=== PATIENT | female | born 1990 | race Hispanic/Latino ===

== ENCOUNTER → 2019-12-02 | Outpatient (REF) | payer OTHER | LOC: M SFHCLERA 12:34 | PROVIDERS: ATTEND Physician Assistant | DX: J02.9 Acute pharyngitis, unspecified (principal) ==

== ENCOUNTER 2020-09-02 14:04 | Emergency (ER) | payer OTHER ==
[~2020-09-02] VITALS: Ht 154.9 cm; Wt 84.0 kg
[2020-09-02] MEDS ORDERED: NS 1,000 ML IV ONE (14:45)
[2020-09-02 15:07] LABS: BASO % 0.2 % (0.0-1.0); EOS # 0.1 10^3/uL (0.0-0.5); EOS % 0.5 % (0.0-3.0); HEMATOCRIT 38.1 % (36.0-47.0); HEMOGLOBIN 12.8 g/dl (12.0-15.5); LYMPH % 18.9 % (24.0-44.0); MEAN CORPUSCULAR HEMOGLOBIN 28.8 pg (27.0-33.0); MEAN CORPUSCULAR HGB CONC 33.6 g/dl (32.0-36.5); MEAN CORPUSCULAR VOLUME 85.6 fl (80.0-96.0); MONO # 0.6 10^3/uL (0.0-0.8); MONO % 5.6 % (0.0-5.0); NEUTROPHILS % 74.4 % (36.0-66.0); PLATELET COUNT, AUTOMATED 247 10^3/uL (150-450); RED BLOOD COUNT 4.45 10^6/uL (4.00-5.40); WHITE BLOOD COUNT 10.8 10^3/uL (4.0-10.0)
[2020-09-02 15:32] LABS: BLOOD UREA NITROGEN 11 MG/DL (7-18); CALCIUM LEVEL 9.3 MG/DL (8.5-10.1); CARBON DIOXIDE LEVEL 28 MEQ/L (21-32); CHLORIDE LEVEL 105 MEQ/L (98-107); CREATININE FOR GFR 0.88 MG/DL (0.55-1.30); GLOMERULAR FILTRATION RATE > 60.0 (>60); GLUCOSE, FASTING 90 MG/DL (70-100); POTASSIUM SERUM 3.9 MEQ/L (3.5-5.1); SODIUM LEVEL 137 MEQ/L (136-145)
[2020-09-02] MEDS ORDERED: MULTTAB20 PO (16:56)
[2020-09-02 17:17] VITALS: BP 131/67
--- NOTE | 2020-09-03 07:15 | ECGEPIP ---
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
== END 2020-09-02 17:23 | disposition home or self-care (01) ==
LOC: M ED 14:04
DX: O26.892 Other specified pregnancy related conditions, second trimester (principal); Z3A.14 14 weeks gestation of pregnancy; Z79.899 Other long term (current) drug therapy

== ENCOUNTER → 2020-09-06 | Outpatient (CLI) | payer SELFPAY ==
[~2020-09-06] MED LIST: MULTTAB20 PO
== END ==
LOC: M LABSMTC 14:12
PROVIDERS: ATTEND Pediatrics
DX: Z20.828 Contact with and (suspected) exposure to other viral communicable diseases (principal)

== ENCOUNTER 2021-02-20 08:14 | Inpatient (IN) | payer OTHER ==
[~2021-02-20] VITALS: Ht 154.9 cm; Wt 87.7 kg
[2021-02-20] VITALS (59 sets, daily range): BP systolic 76–134; BP diastolic 40–81
[2021-02-20] MEDS ORDERED: UNIS25TA3 PO (08:40)
[2021-02-20] MEDS ORDERED: TUMS500C PO (08:40)
[2021-02-20] MEDS ORDERED: METHYLERGONOVINE MALEATE 0.2 MG/ML VIAL (J2210) IM PRN (09:25)
[2021-02-20] MEDS ORDERED: TRANEXAMIC ACID INJection 1,000 MG in NS 100 ML IV PRN (09:25)
[2021-02-20] MEDS ORDERED: CARBOPROST TROMETHAMINE 250 MCG/ML AMP IM PRN (09:25)
[2021-02-20] MEDS ORDERED: OXYTOCIN DRIP 30 UNITS in IV 1 EA IV PRN ×4 (09:25)
[2021-02-20] MEDS ORDERED: OXYTOCIN INJ 10 UNITS/ML VIAL (J2590) IM PRN (09:25)
[2021-02-20] MEDS ORDERED: OXYTOCIN INJ 10 UNITS/ML VIAL (J2590) IV PRN (09:25)
[2021-02-20] MEDS ORDERED: LACTATED RINGER'S 1000 ML IV STA (09:29)
[2021-02-20] MEDS ORDERED: NS 1,000 ML IV SCH (09:30)
[2021-02-20] MEDS: LR 1,000 ML IV SCH ×3 (09:30→19:04)
--- NOTE | 2021-02-20 09:36 | HPEPDOC ---
Obstetrical History & Physical General Date of Admission Feb 20, 2021 at 09:19 History of Present Illness Mrs. Sandie Brown is a 30yo at 39w2d ega, by 1st trimester ultrasound, with PNC c/b h/o a PLTCS, A1GDM, Rh negative, Obesity, and Varicella Non-Immune status who presents to rule-out labor. Mrs. Brown reports the onset of regular uterine contractions at 05:00. She denies LOF or VB. + FM. Chief Complaint: Contractions, term Information Provided By: Patient Age: 30 : 3 Term: 1 Pre-term: 0 Abortions: 1 Livin Care Care: Good Care (7) Number of Visits: 7 Dating Final EDC: Feb 25, 2021 Final EDC for Daily Update: Feb 25, 2021 Final EDC by: 1st trimester (US) LMP: Apr 29, 2020 Weeks + Days: 38 Estimated Date of Confinement: Feb 25, 2021 EGA at Admission: 38 Antepartum Course Diagnos(e)s A1GDM History of a PLTCS Rh Negative Obesity Varicella Non-Immune Height (inches): 61 Pre- weight (lbs.): 180 Admission Weight (lbs.): 193.3 Change in Weight (lbs.): 13.3 Past Medical History Past Obstetrical History : Past Obstetrical History: Multigravida Date of Delivery: Dec 07, 2015 Type of Delivery: Ceserean section Complications: No PUBLIC RELATIONS History: No pertinent history Past Medical History Surgical History: Appendectomy, section, [place] teeth Family History Significant Family History: No pertinent family hx Social History Marital Status: Family situation: Spouse/partner home Psychosocial History: No pertinent psych hx * Smoker: non-smoker Alcohol: Denies Drugs: denies Abuse Violence Screening Have you been hit/kicked/slapp: No Have you been sexually assault: No Imunizations Tdap status: current Influenza Status: current Allergies Coded Allergies: No Known Allergies (Unverified , 02/20/21) Medications Scheduled Calcium Carbonate (Tums) 200 Mg Tab.chew, 2 TAB PO QID for cough and congestion Doxylamine Succinate (Unisom Sleep Aid) 25 Mg Tablet, 1 TAB PO QPM No122/Iron/Folic Acid ( Multi Tablet) 1 Each Tablet, 1 TAB PO QHS Physical Examination Physical Examination GENERAL: Alert and oriented times three. ABDOMEN: Gravid and non-tender to touch. FETUS: Is vertex (VTX) by sterile vaginal examination (SVE) HEART RATE: Regular rate and rhythm. LUNGS: Clear to auscultation (CTA). EXTREMITIES: No edema. Laboratory Data 24H LABS Laboratory Tests 2 02/20/21 09:22: Serology Scanned Report Hepatitis B Testing Urine Culture: Contaminated Pertinent Laboratoy Data Blood Type: A- RBC Antibody Screen: Negative HIV: Negative Hepatitis B: Negative Hepatitis C: Negative Rapid Plasma Reagin: Nonreactive Rubella: Immune Varicella: Nonreactive Chlamydia/Gonorrhea: Negative Group B Streptococcus: Negative Cystic Fibrosis: Negative Glucose Tolerance Test: 137 Anatomy Ultrasound Ultrasound Date: Oct 12, 2020 Placenta Location: Posterior Normal Anatomy: Yes Placenta Previa: No Other Ultrasounds 11 Feb 2021: Posterior placenta; EFW 3377-grams. Steroid Therapy Steroid Therapy: No Vaginal Examination Dilation: 2cm Effacement: 90% Station: -1, 0 Cervical Consistency: Soft Cervical Position: Middle Presentation: Cephalic presentation Assessment Heart Rate (FHR): 130 Variability: Moderate Accelerations: Positive Decelerations: None Tocometer Contractions: Yes Frequency: regular, every 1-3 min. Assessment/Plan Assessment Mrs. Sandie Brown is a 30yo at 38w2d ega, by 1st trimester ultrasound, with PNC c/b h/o a PLTCS, A1GDM, Varicella Non-Immune, Rh Negative, and Obesity who presents in Early Active Labor as a Trial of Labor After (TOLAC). Admission CBC: 12.8>14.1/41.9<232 Plan Admit and orient. Modular Set Crew Member and consent. Diet: Clear liquids. Group B Streptococcus (GBS) negative. Labs and intravenous (IV) per unit protocol. Counseled on Pitocin and augmentation of labor (IOL). Lactated Ringers (LR): Bolus 999mL, then at 125mL/hr. Finger Stick readings q2 hours in latent labor & q1 hour in active labor. - Admission blood glucose: 65 Repeat SVE 2-hours after first check (10:30) Encouraged early epidural & IUPC placement Anticipate normal spontaneous delivery (). C-S as appropriate. Labor and Delivery Counseling Mrs. Brown was counseled that there is a 60-80% success rate of vaginal delivery after previous delivery. Patient's who have a successful , have less blood loss and transfusions, fewer infections, less thromboembolic events, shorter hospitalizations / recovery time, and avoid the risk of uterine rupture and abnormal placentation associated with multiple deliveries. Patient was counseled that should she have an unsuccessful trial of labor, she would be at increased risk of maternal complications to include uterine rupture, hysterectomy, operative injury, infection, transfusion, as well as complications to include low scores and infection. The overall risk for these complications, however, is low. Those patient's who's indication for was malpresentation, or distress to have higher likelihood of success with than those who had for labor arrest. In fact, if the was performed after the cervix was completely dilated, the likelihood of a successful is 13%. Other factors which may decrease success rates are needed for augmentation/induction, estimated gestational age greater than 40 weeks, weight greater than 4000-grams, maternal obesity, and inter- delivery interval less than 19-months. MIGUEL A BARONE M.D. Feb 20, 2021 09:36
[2021-02-20] MEDS ORDERED: ONDANSETRON 4MG/2ML VIAL IV ONE (10:05)
[2021-02-20 10:17] LABS: HEMATOCRIT 41.9 % (36.0-47.0); HEMOGLOBIN 14.1 g/dl (12.0-15.5); MEAN CORPUSCULAR HEMOGLOBIN 28.5 pg (27.0-33.0); MEAN CORPUSCULAR HGB CONC 33.7 g/dl (32.0-36.5); MEAN CORPUSCULAR VOLUME 84.8 fl (80.0-96.0); PLATELET COUNT, AUTOMATED 232 10^3/uL (150-450); RED BLOOD COUNT 4.94 10^6/uL (4.00-5.40); WHITE BLOOD COUNT 12.8 10^3/uL (4.0-10.0)
[2021-02-20] MEDS ORDERED: FENTANYL 2MCG/ML ROPIVACAINE 0.2% IN 0.9% NACL 100ML IVBAG As Ordered ONE (10:41)
[2021-02-20] MEDS ORDERED: DEXTROSE 50% 50 ML SYRINGE As Ordered ONE (10:50)
[2021-02-20] MEDS ORDERED: DEXTROSE 50% 50 ML SYRINGE IV ONE (11:30)
[2021-02-20] MEDS ORDERED: REFRIGERATOR IV KEYS XX PRN (11:30)
[2021-02-20] MEDS ORDERED: EPIDURAL COMMENT XX SCH (11:30)
[2021-02-20] MEDS ORDERED: ePHEDrine SULFATE 25 MG/5 ML(5MG/ML) SYRINGE IV PRN (11:30)
[2021-02-20] MEDS: FENTANYL/ROPIVACAINE/NACL BAG 100 ML EPIDURAL SCH ×2 (11:30→21:04)
[2021-02-20] MEDS ORDERED: diphenhydrAMINE 50MG/ML VIAL (J1200) IV PRN (11:30)
[2021-02-20] MEDS ORDERED: NALOXONE INJ 0.4MG/1ML VIAL (J2310 PER 1MG) IV PRN (11:30)
[2021-02-20] MEDS ORDERED: EPIDURAL/PCA KEYS XX PRN (11:30)
[2021-02-20] MEDS ORDERED: ONDANSETRON 4MG/2ML VIAL IV PRN (11:30)
[2021-02-20] MEDS ORDERED: LACTATED RINGER'S 1000 ML IV PRN (11:30)
--- NOTE | 2021-02-20 12:11 | IPNPDOC ---
Obstetrical Progress Note Date of Service Feb 20, 2021 Subjective Mrs. Sandie Brown is a 30yo at 39w2d ega, by 1st trimester ultrasound, with PNC c/b h/o a PLTCS, A1GDM, Rh negative, Obesity, and Varicella Non-Immune status who was admitted in Early Active Labor to undergo a TOLAC. Objective Vital Signs Date Time Temp Pulse Resp B/P (MAP) Pulse Ox O2 Delivery O2 Flow Rate FiO2 02/20/21 11:41 86 115/65 (82) 02/20/21 10:59 98.0 18 Assessment Heart Rate (FHR): 140 Variability: Moderate Accelerations: Positive Decelerations: Variable, Prolonged Heart Rate Tracing: Category II Tocometer Contractions: Yes Frequency: regular, every 1-3 min. Sterile Vaginal Examination Dilation: 2cm Effacement (%): 90% Station: -1, 0 Cervical Consistency: Soft Cervical Position: Middle Postion/Presentation: Cephalic presentation Assessment and Plan Age: 30 : 3 Term: 1 Pre-term: 0 Abortions: 1 Livin EGA at Admission: 39 Weeks & Days 39w2d ega Status: Reassuring Group B Streptococcus: Negative Anticipate: Vaginal Delivery Additional Comments Repeat SVE at ~10:30 by RN was unchanged at 2/90/0. - FHT with alterations after epidural placement secondary to maternal hypotension. - Patient was given D5 by Anesthesia staff without informing the OB-TELECOMMUNICATIONS LINE MECHANIC provider - Will continue to monitor FHT - Will repeat SVE 2-hours after last check - If unchanged, will start Pitocin - Will place early IUPC once patient is ruptured You Villarreal., Ph.D. [employer] & OB-TELECOMMUNICATIONS LINE MECHANIC Staff MIGUEL A BARONE M.D. Feb 20, 2021 12:11
--- NOTE | 2021-02-20 13:31 | IPNPDOC ---
Obstetrical Progress Note Date of Service Feb 20, 2021 Subjective Mrs. Sandie Brown is a 30yo at 39w2d ega, by 1st trimester ultrasound, with PNC c/b h/o a PLTCS, A1GDM, Rh negative, Obesity, and Varicella Non-Immune status who was admitted in Early Active Labor to undergo a TOLAC. Patient is now comfortable with epidural anesthesia. Objective Vital Signs Date Time Temp Pulse Resp B/P (MAP) Pulse Ox O2 Delivery O2 Flow Rate FiO2 02/20/21 11:41 86 115/65 (82) 02/20/21 10:59 98.0 18 Assessment Heart Rate (FHR): 120 Variability: Moderate Accelerations: Positive Decelerations: None Heart Rate Tracing: Category I Tocometer Contractions: Yes Frequency: regular, every 1-3 min. Sterile Vaginal Examination Dilation: 4 cm Effacement (%): 100% Station: -1, 0 Cervical Consistency: Soft Cervical Position: Middle Postion/Presentation: Cephalic presentation Assessment and Plan Age: 30 : 3 Term: 1 Pre-term: 0 Abortions: 1 Livin EGA at Admission: 39 Weeks & Days 39w2d Status: Reassuring Group B Streptococcus: Negative Anticipate: Vaginal Delivery Additional Comments Will repeat SVE in 2 hours Continue to monitor FHT and contractions All questions answered You Villarreal., Ph.D. [employer] & OB-SPEECH AND HEARING CLINIC DIRECTOR Staff MIGUEL A BARONE M.D. Feb 20, 2021 13:31
--- NOTE | 2021-02-20 16:30 | IPNPDOC ---
Obstetrical Progress Note Date of Service Feb 20, 2021 Subjective Mrs. Sandie Brown is a 30yo at 39w2d ega, by 1st trimester ultrasound, with PNC c/b h/o a PLTCS, A1GDM, Rh negative, Obesity, and Varicella Non-Immune status who was admitted in Early Active Labor to undergo a TOLAC. Patient had epidural replaced secondary to a malfunction with the catheter tubing. Objective Vital Signs Date Time Temp Pulse Resp B/P (MAP) Pulse Ox O2 Delivery O2 Flow Rate FiO2 02/20/21 16:09 75 116/67 (83) 02/20/21 10:59 98.0 18 Assessment Heart Rate (FHR): 130 Variability: Moderate Accelerations: Positive Decelerations: None Heart Rate Tracing: Category I Tocometer Contractions: Yes Frequency: regular, every 1-3 min. Sterile Vaginal Examination Dilation: 6 cm Effacement (%): 100% Station: 0 Cervical Consistency: Soft Cervical Position: Anterior Postion/Presentation: Cephalic presentation Assessment and Plan Age: 30 : 3 Term: 1 Pre-term: 0 Abortions: 1 Livin EGA at Admission: 39 Weeks & Days 39w2d ega Status: Reassuring Group B Streptococcus: Negative Anticipate: Vaginal Delivery Additional Comments - Continue to allow the patient to labor - Will repeat SVE in 2-hours - If appropriate, will perform an amniotomy & place an IUPC to monitor uterine contractions - q2-hour glucose readings in latent labor & q1-hour glucose readings in active labor - Order placed as these have not been drawn since admission reading - All questions answered You Villarreal., Ph.D. [employer] & OB-REVERSING MILL ROLLER Staff Physician MIGUEL A BARONE M.D. Feb 20, 2021 16:30
--- NOTE | 2021-02-20 19:41 | IPNPDOC ---
Obstetrical Progress Note Date of Service Feb 20, 2021 Subjective Mrs. Sandie Brown is a 30yo at 39w2d ega, by 1st trimester ultrasound, with PNC c/b h/o a PLTCS, A1GDM, Rh negative, Obesity, and Varicella Non-Immune status who was admitted in Early Active Labor to undergo a TOLAC. Patient is comfortable with epidural anesthesia. Objective Vital Signs Date Time Temp Pulse Resp B/P (MAP) Pulse Ox O2 Delivery O2 Flow Rate FiO2 02/20/21 19:25 80 119/70 (86) 02/20/21 19:10 98.0 18 98 Room Air Assessment Heart Rate (FHR): 130 Variability: Moderate Accelerations: Positive Decelerations: None Heart Rate Tracing: Category I Tocometer Contractions: Yes Frequency: regular, every 1-3 min. Sterile Vaginal Examination Dilation: 7 cm Effacement (%): 100% Station: -1, 0 Cervical Consistency: Soft Cervical Position: Anterior Postion/Presentation: Cephalic presentation Assessment and Plan Age: 30 : 3 Term: 1 Pre-term: 0 Abortions: 1 Livin EGA at Admission: 39 Weeks & Days 39w2d Status: Reassuring Group B Streptococcus: Negative Anticipate: Vaginal Delivery Additional Comments - Will repeat SVE 2-hours from last (20:50) - Will consider amniotomy with IUPC placement at next check - All questions answered Rob Villarreal, Ph.D. [employer] & OB-ARTILLERY OFFICER Staff Physician MIGUEL A BARONE M.D. Feb 20, 2021 19:41
--- NOTE | 2021-02-20 21:15 | IPNPDOC ---
Obstetrical Progress Note Date of Service Feb 20, 2021 Subjective Mrs. Sandie Brown is a 30yo at 39w2d ega, by 1st trimester ultrasound, with PNC c/b h/o a PLTCS, A1GDM, Rh negative, Obesity, and Varicella Non-Immune status who was admitted in Early Active Labor to undergo a TOLAC. Patient is comfortable with epidural anesthesia. Objective Vital Signs Date Time Temp Pulse Resp B/P (MAP) Pulse Ox O2 Delivery O2 Flow Rate FiO2 02/20/21 20:40 98.2 88 130/79 (96) 02/20/21 19:10 18 98 Room Air Assessment Heart Rate (FHR): 130 Variability: Moderate Accelerations: Positive Decelerations: None Heart Rate Tracing: Category I Tocometer Contractions: Yes Frequency: regular, every 1-3 min. Sterile Vaginal Examination Dilation: 7 cm Effacement (%): 100% Station: -1, 0 Cervical Consistency: Soft Cervical Position: Middle Postion/Presentation: Cephalic presentation Assessment and Plan Age: 30 : 3 Term: 1 Pre-term: 0 Abortions: 1 Livin EGA at Admission: 39 Weeks & Days 39w2d Status: Reassuring Group B Streptococcus: Negative Anticipate: Vaginal Delivery Additional Comments Amniotomy performed at 21:10 productive of minimal mixed fluid Repeat SVE in 2-hours, or as clinically indicated All questions answered Rob Villarreal, Ph.D. [employer] & OB-TERRAZZO GRINDER Staff MIGUEL A BARONE M.D. Feb 20, 2021 21:15
[2021-02-20 23:13] LABS: CORD GAS ABE V -9.6; CORD GAS HCO3 V 18.4 MEQ/L; CORD GAS O2 SAT V 44.5 %; CORD GAS PCO2 V 47.4 mmHg; CORD GAS PH V 7.207 UNITS; CORD GAS PO2 V 22.1 mmHg; CORD GAS SBC V 15.8 MEQ/L; CORD GAS TCO2 V 19.9 MEQ/L
[2021-02-20 23:16] LABS: CORD GAS ABE A -12.4; CORD GAS HCO3 A 21.3 MEQ/L; CORD GAS PCO2 A 91.3 mmHg; CORD GAS PO2 A 10.3 mmHg; CORD GAS TCO2 A 24.1 MEQ/L
[2021-02-20 23:18] LABS: CORD GAS PH A 6.985 UNITS
--- NOTE | 2021-02-20 23:47 | DNPDOC ---
[facility] Delivery Note Delivery Note DATE OF DELIVERY: 20 February 2021 at 23:00 PREDELIVERY DIAGNOSIS: 1) Single Intrauterine at 39w2d ega; 2) Trial Of Labor After (TOLAC) POST DELIVERY DIAGNOSIS: Vaginal After () PROCEDURE: Vaginal After () MACHINE PECAN GATHERER: Aram Davenport M.D., Ph.D. ANESTHESIA: Epidural ESTIMATED BLOOD LOSS: 400mL FINDINGS: Male infant weighing 8 pounds 7 ounces (3830-grams) with Score 7/9 DELIVERY SUMMARY: Mrs. Brown progressed steadily after admission and AROM to C/C/+1. She had a strong urge to push and her Feldman catheter was removed. The delivery bed was broken down and the patient was prepped for delivery. There was difficulty tracing the 's heart rate and a scalp electrode was placed. The 's heart rate was noted to be in the 80s and with the next set of contractions, a Kiwi vacuum was placed and activated to the green zone. Gentle traction was applied. Suction was lost given significant caput and the inability of the Kiwi device to maintain adequate suction. A second Kiwi vacuum was applied with similar result. The heart tracing was then noted to be above 100bpm. With excellent maternal pushing efforts, her baby delivered. Presentation was OA with restitution to ROT. A tight nuchal cord was reduced at the perineum. The left anterior shoulder delivered with gentle traction followed easily by the remainder of the body. The was dried and stimulated on the field and a bulb suction was used. The three vessel umbilical cord was then clamped and cut. The infant was then immediately taken to the warmer. The third stage of labor was completed with gentle traction on on the umbilical cord and productive of an intact placenta. The uterus was firmed with massage & Pitocin IV bolus. Inspection of the cervix, vagina, labia, and perineum revealed a right labial laceration & midline first degree laceration. Both the labial and perineal lacerations were repaired with 2-0 vicryl suture in the usual fashion. There was excellent cosmesis and hemostasis after the repair. The fundus was palpated again and was firm. Sponge, instrument, and needle counts were correct X2. The was taken to the NICU for observation. The mother was stable when I left the room. You Villarreal., Ph.D. [employer] & OB-COMBAT ENGINEER Staff Physician ARAM DAVENPORT M.D. Feb 20, 2021 23:47
[2021-02-21] MEDS ORDERED: DOCUSATE SODIUM 100MG CAPSULE PO PRN (00:15)
[2021-02-21] MEDS ORDERED: ACETAMINOPHEN TAB 650MG DOSE (2X325MG) PO PRN (00:15)
[2021-02-21] MEDS ORDERED: RHOGAM 300 MCG (1500 IU) INJ (J2790) IM SCH (00:15)
[2021-02-21] MEDS ORDERED: IBUPROFEN 600MG TAB PO PRN (00:15)
[2021-02-21] MEDS ORDERED: METHYLERGONOVINE MALEATE 0.2 MG TAB PO PRN (00:15)
[2021-02-21] MEDS ORDERED: MEASLES,MUMPS,RUBELLA VACCINE INJ (MMR-II) (90707) SC SCH (00:15)
[2021-02-21] MEDS ORDERED: DIBUCAINE 1% OINTMENT 30GM TOP PRN (00:15)
[2021-02-21] MEDS: IBUPROFEN 800 MG TAB PO PRN ×2 (00:45→17:14)
[2021-02-21 01:45] VITALS: BP 109/56
[2021-02-21] MEDS: ACETAMINOPHEN 500 MG TAB PO PRN ×3 (04:42→20:30)
--- NOTE | 2021-02-21 04:49 | IPNPDOC ---
Progress Note Date of Service: Feb 21, 2021 Day#: 1 Progress Note SUBJECT: Mrs. Sandie Brown is a 30yo G3 now P2012 who is PPD#1 status post uncomplicated Vaginal After (). Mrs. Brown delivered a male weighing 3830-grams, with APGARs 7/9 on Sunday, 20 February 2021 at 23:00. She had a right labial & 1st degree perineal lacerations that were repaired. EBL was 400mL. This morning, the patient's RN called stating that the patient was experiencing episodes of uterine atony with increased vaginal bleeding. The patient voided 900cc, clear yellow urine and the uterus clamped down. Mrs. Brown states she is "doing well" this morning. Her pain is controlled with oral pain medications; she is ambulating; voiding spontaneously; passing flatus; and tolerating a regular diet. She endorses cramping with . At this time, she denies contraception and circumcision. OBJECTIVE: VITAL SIGNS: Within normal limits, afebrile. Gen: Alert and oriented times three. Abdomen: Fundus firm at U-1. Soft. Moderate lochia (per RN report). ASSESSMENT: Mrs. Sandie Brown is a 30yo G3 now P2012 who is PPD#1 status post an uncomplicated who is overall hemodynamically stable with episodes of uterine atony leading to increased vaginal bleeding. PLAN: 1. 0.2mg Methergine po q4hrs x4-doses 2. Tylenol and Motrin for pain. 3. Encourage breast feeding and ambulation. 4. Patient will discuss contraception at 6-week PP visit. 5. Patient declines circumcision for her infant. 6. Routine PP visit in 6 weeks in clinic. 7. Discussed return precautions at length. You Villarreal., Ph.D. [employer] & OB-SOURCE WATER PROTECTION SPECIALIST Staff Physician VS, I&O, 24H, Ernesto Vital Signs/I&O Vital Signs Date Time Temp Pulse Resp B/P (MAP) Pulse Ox O2 Delivery O2 Flow Rate FiO2 02/21/21 01:45 98.5 89 16 109/56 (73) 99 Room Air I&O- Last 24 Hours up to 6 AM 02/21/21 06:00 Intake Total 5053 ml Output Total 1450 ml Balance 3603 ml Laboratory Data 24H LABS Laboratory Tests 2 6/6/21 09:22: Serology Scanned Report Hepatitis B Testing 02/20/21 09:43: Bedside Glucose (Misc Panel) 65L 02/20/21 10:05: Nucleated Red Blood Cells % (auto) 0.0 02/20/21 16:21: Bedside Glucose (Misc Panel) 78 02/20/21 17:31: Bedside Glucose (Misc Panel) 72 02/20/21 18:25: Bedside Glucose (Misc Panel) 109H 02/20/21 19:35: Bedside Glucose (Misc Panel) 79 02/20/21 20:35: Bedside Glucose (Misc Panel) 78 02/20/21 21:45: Bedside Glucose (Misc Panel) 73 02/20/21 23:06: Cord Arterial Blood pH 6.985*L, Cord Arterial Blood PCO2 91.3, Cord Arterial Blood PO2 10.3, Cord Arterial Blood HCO3 21.3, Cord Arterial Blood Total CO2 24.1, Cord Arterial Blood Base Excess -12.4, Cord Arterial Base Excess (Standard , Cord Arterial Bld Oxygen Saturation , Cord Venous Blood pH 7.207, Cord Venous Blood PCO2 47.4, Cord Venous Blood PO2 22.1, Cord Venous Blood HCO3 18.4, Cord Venous Blood Total CO2 19.9, Cord Venous Base Excess (Actual) -9.6, Cord Venous Base Excess (Standard) 15.8, Cord Venous Blood Oxygen Saturation 44.5 CBC/BMP Laboratory Tests 02/20/21 10:05 MIGUEL A BARONE M.D. Feb 21, 2021 04:49
[2021-02-21] MEDS: METHYLERGONOVINE MALEATE 0.2 MG TAB PO SCH ×4 (05:08→17:14)
[2021-02-21 06:21] VITALS: BP 103/53
[2021-02-21] MEDS ORDERED: BOOSTRIX/ADACEL VACCINE (DIPHTH/PERTUSS/ACELL/TETANUS) 0.5ML SYR IM ONE (09:00)
[2021-02-21] MEDS: PRENATAL VITAMINS CHEWABLE TABLET PO SCH (09:34)
[2021-02-21 18:00] VITALS: BP 139/65
[2021-02-22 06:00] VITALS: BP 108/62
[2021-02-22] MEDS ORDERED: PRENCHW PO (07:02)
[2021-02-22] MEDS ORDERED: ACET-683 PO (07:02)
[2021-02-22] MEDS ORDERED: IBUP80TA PO (07:02)
--- NOTE | 2021-02-22 07:07 | DS.PDOC ---
Discharge Summary General Date of Admission Feb 20, 2021 at 09:19 Date of Discharge February 22, 2021 Discharge Summary HOSPITAL COURSE: Ms. Brown is a 30 yo G3 now P2 who underwent an uncomplicated vacuum assisted on 20Feb2021 after being admitted for labor. Her course was unremarkable. On her day of discharge she met all appropriate discharge criteria. She was ambulating, voiding, tolerating a re gular diet, and had minimal lochia. DISCHARGE MEDICATIONS: Please see below. ALLERGIES: Please see below. PHYSICAL EXAMINATION ON DISCHARGE: VITAL SIGNS: Please see below. GENERAL: AAOX3, NAD ABDOMINAL EXAMINATION: Fundus firm at U-2. No fundal tenderness EXTREMITIES: No edema PSYCHIATRIC EXAMINATION: Affect appropriate LABORATORY DATA: Please see below. ACTIVITY: Pelvic rest for 6 weeks DIET: Regular DISCHARGE PLAN: Discharge home DISPOSITION: Discharge home on 22Feb2021 DISCHARGE INSTRUCTIONS: 1. Nothing in the vagina for 6 weeks ITEMS TO FOLLOWUP ON ON OUTPATIENT: 1. Call to schedule a visit for 6 weeks post delivery DISCHARGE CONDITION: Stable. TIME SPENT ON DISCHARGE: Greater than 20 minutes. Javier Doyle DO Vital Signs/I&Os Vital Signs Date Time Temp Pulse Resp B/P (MAP) Pulse Ox O2 Delivery O2 Flow Rate FiO2 02/22/21 06:00 98.2 64 16 108/62 (77) 100 Room Air Discharge Medications Scheduled Calcium Carbonate (Tums) 200 Mg Tab.chew, 2 TAB PO QID for cough and congestion, (Reported) Doxylamine Succinate (Unisom Sleep Aid) 25 Mg Tablet, 1 TAB PO QPM, (Reported) Pnv No.118/Iron Fumarate/FA ( 19 Chewable Tablet) 1 Each Tab.chew, 1 TAB PO DAILY No122/Iron/Folic Acid ( Multi Tablet) 1 Each Tablet, 1 TAB PO QHS, (Reported) Scheduled PRN Acetaminophen (Acetaminophen) 500 Mg Tablet, 1,000 MG PO Q6HP PRN for PAIN LEVEL 6-10 Ibuprofen (Ibuprofen) 800 Mg Tablet, 800 MG PO Q8HP PRN for PAIN LEVEL 6-10 Allergies Coded Allergies: No Known Allergies (Unverified , 02/20/21) JAVIER DOYLE DO Feb 22, 2021 07:07
[2021-02-22] MEDS: PRENATAL VITAMINS CHEWABLE TABLET PO SCH (08:14)
[2021-02-22] MEDS: IBUPROFEN 800 MG TAB PO PRN (08:15)
[2021-02-22] MEDS: ACETAMINOPHEN 500 MG TAB PO PRN (18:26)
== END 2021-02-22 18:56 | disposition home or self-care (01) | DRG 807 ==
LOC: M LDO 08:14 → M LDI 09:19 → M OBS 02-21 01:14
PROVIDERS: ADMIT Obstetrics & Gynecology Reproductive Endocrinology; ATTEND Obstetrics & Gynecology Reproductive Endocrinology
PROC: 10D07Z6 Extraction of Products of Conception, Vacuum, Via Natural or Artificial Opening (ICD-10-PCS; principal; 2021-02-20)
PROC: 0HQ9XZZ Repair Perineum Skin, External Approach (ICD-10-PCS; 2021-02-20)
PROC: 10907ZC Drainage of Amniotic Fluid, Therapeutic from Products of Conception, Via Natural or Artificial Opening (ICD-10-PCS; 2021-02-20)
DX: O34.211 Maternal care for low transverse scar from previous cesarean delivery (principal); Z37.0 Single live birth; Z3A.39 39 weeks gestation of pregnancy; O24.429 Gestational diabetes mellitus in childbirth, unspecified control; E66.9 Obesity, unspecified; O99.214 Obesity complicating childbirth; O70.0 First degree perineal laceration during delivery; O76 Abnormality in fetal heart rate and rhythm complicating labor and delivery